=== PATIENT | female | born 1995 | race Caucasian/White ===

== ENCOUNTER → 2020-03-24 | Outpatient (CLI) | payer SELFPAY ==
[~2020-03-24] MED LIST: CYCL10 PO; IBUP600 PO
== END ==
LOC: LAB SHORT 12:23 → LAB 12:23
PROVIDERS: Registered Nurse Community Health
DX: Z12.4 Encounter for screening for malignant neoplasm of cervix (principal)
CPT/HCPCS: G0123

== ENCOUNTER → 2022-03-20 | Outpatient (CLI) | payer SELFPAY | END | disposition home or self-care (01) | LOC: LAB 17:00 → LAB SHORT 17:00 | DX: Z01.84 Encounter for antibody response examination (principal) | CPT/HCPCS: 86787 ==

== ENCOUNTER → 2024-03-30 | Outpatient (CLI) | payer OTHER | LOC: LAB SHORT 13:01 | DX: O09.893 Supervision of other high risk pregnancies, third trimester (principal); Z3A.00 Weeks of gestation of pregnancy not specified | CPT/HCPCS: 87081; 87150 ==

== ENCOUNTER 2024-04-20 05:57 | Inpatient (IN) | payer OTHER ==
[~2024-04-20] VITALS: Ht 157.5 cm; Wt 86.3 kg
[2024-04-20] VITALS (21 sets, daily range): BP systolic 100–131; BP diastolic 56–82
[~2024-04-20 05:57] MED LIST changes: +CeFAZolin Sodium 2,000 MG in NS 100 ML IV SCH; +Citric Acid/Sodium Citrate 30 ML BTL PO PRN; +Lactated Ringer's 1,000 ML IV SCH; +Metoclopramide HCl 5MG / ML 2ML Vial IV PRN
[2024-04-20] MEDS ORDERED: PRENATAL TABLE1 EAC2 PO (06:36)
[2024-04-20 06:58] LABS: BASOPHILS ABSOLUTE AUTO 0.02 K/mm3 (0.00-0.23); BASOPHILS PERCENT AUTO 0 % (0-2); EOSINOPHILS ABSOLUTE AUTO 0.07 K/mm3 (0.00-0.68); EOSINOPHILS PERCENT AUTO 1 % (0-6); Hematocrit 35.9 % (33.0-51.0); Hemoglobin 12.4 g/dL (11.5-16.0); IMMATURE GRAN PERCENT AUTO 1 % (0-1); LYMPHOCYTES ABSOLUTE AUTO 1.97 K/mm3 (0.84-5.20); LYMPHOCYTES PERCENT AUTO 22 % (21-46); MONOCYTES ABSOLUTE AUTO 0.81 K/mm3 (0.16-1.47); MONOCYTES PERCENT AUTO 9 % (4-13); Mean Corpuscular HGB 32.9 pg (26.0-34.0); Mean Corpuscular HGB Conc 34.5 g/dL (31.5-36.5); Mean Corpuscular Volume 95 fL (80-100); Mean Platelet Volume 10.2 fL (9.1-12.4); NEUTROPHILS ABSOLUTE AUTO 5.83 K/mm3 (1.96-9.15); NEUTROPHILS PERCENT AUTO 66 % (41-73); Platelet Count 266 K/mm3 (150-400); RDW Standard Deviation 49.3 fL (35.1-46.3); Red Blood Cell Count 3.77 M/mm3 (3.80-5.20)
[2024-04-20] MEDS ORDERED: FentaNYL Citrate 50 MCG/ML 2 ML Injection ONE (07:24)
[2024-04-20] MEDS ORDERED: Dexamethasone Sod Phos 10 MG/ML 1ML VIAL ONE (07:28)
[2024-04-20] MEDS ORDERED: Ondansetron HCl 2 MG / ML 2ML Vial ONE (08:07)
[2024-04-20] MEDS ORDERED: Oxytocin 10 Unit / ML Vial ONE (08:07)
--- NOTE | 2024-04-20 08:11 | NUR ---
04/20/24 0811 Beatriz Jack S C/D DELIVERY OF BREECH GIRL AT 0802. AP 04/09. CORD BLOOD COLLECTED AND SENT WITH BLANCA RHODES. PLACENTA COLLECTED AND GIVEN TO DAD TO TAKE HOME PER PT REQUEST.
[2024-04-20] MEDS ORDERED: Ketorolac Tromethamine 30mg Vial ONE (08:19)
[2024-04-20] MEDS ORDERED: Phenylephrine HCl 100 MCG/ML-NS 10MLSYR (1MG/10ML) ONE (08:21)
[2024-04-20] MEDS ORDERED: HYDROmorphone HCl/Pf 1MG SYR IV PRN (08:55)
[2024-04-20] MEDS ORDERED: FentaNYL Citrate 50 MCG/ML 2 ML Injection IV PRN ×3 (08:55)
[2024-04-20] MEDS ORDERED: Metoclopramide HCl 5MG / ML 2ML Vial IV PRN (08:55)
[2024-04-20] MEDS ORDERED: OxyCODONE HCL 5 MG TAB PO PRN ×2 (09:00)
[2024-04-20] MEDS ORDERED: OXYTOCIN/RINGER'S LACTATE 500 ML IV SCH (09:00)
[2024-04-20] MEDS ORDERED: DiphenhydrAMINE HCL 25 MG Cap PO PRN (09:00)
[2024-04-20] MEDS ORDERED: Lanolin Cream TOP PRN (09:00)
[2024-04-20] MEDS ORDERED: Misoprostol 200 MCG Tab PR PRN (09:00)
[2024-04-20] MEDS ORDERED: Acetaminophen 500 MG Tab PO PRN (09:00)
[2024-04-20] MEDS ORDERED: Ondansetron HCl 2 MG / ML 2ML Vial IV PRN (09:00)
[2024-04-20] MEDS ORDERED: Simethicone 80 MG Chew PO PRN (09:05)
[2024-04-20] MEDS ORDERED: Carboprost Tromethamine 250 MCG/ML 1ML Amp IM PRN (09:05)
[2024-04-20] MEDS ORDERED: Methylergonovine Maleate 0.2MG / ML 1ML Amp IM PRN (09:10)
[2024-04-20] MEDS ORDERED: Metoclopramide HCl 10 MG Tab PO PRN (09:10)
[2024-04-20] MEDS ORDERED: Magnesium Hydroxide Conc 10 ML UDC PO PRN (09:10)
[2024-04-20] MEDS ORDERED: Ketorolac Tromethamine 30mg Vial IV SCH ×2 (10:00→14:30)
[2024-04-20] MEDS ORDERED: Ibuprofen 400 MG Tab PO SCH (16:00)
[2024-04-20] MEDS ORDERED: Docusate Sodium 100 MG Cap PO SCH (21:00)
[2024-04-21 03:22] VITALS: BP 118/63
[2024-04-21 05:45] LABS: BASOPHILS ABSOLUTE AUTO 0.02 K/mm3 (0.00-0.23); BASOPHILS PERCENT AUTO 0 % (0-2); EOSINOPHILS ABSOLUTE AUTO 0.04 K/mm3 (0.00-0.68); EOSINOPHILS PERCENT AUTO 0 % (0-6); Hematocrit 32.5 % (33.0-51.0); Hemoglobin 11.4 g/dL (11.5-16.0); IMMATURE GRAN ABSOLUTE AUTO 0.14 K/mm3 (0.00-0.10); IMMATURE GRAN PERCENT AUTO 1 % (0-1); LYMPHOCYTES ABSOLUTE AUTO 2.86 K/mm3 (0.84-5.20); LYMPHOCYTES PERCENT AUTO 21 % (21-46); MONOCYTES ABSOLUTE AUTO 1.16 K/mm3 (0.16-1.47); MONOCYTES PERCENT AUTO 8 % (4-13); Mean Corpuscular HGB 33.8 pg (26.0-34.0); Mean Corpuscular HGB Conc 35.1 g/dL (31.5-36.5); Mean Corpuscular Volume 96 fL (80-100); Mean Platelet Volume 10.1 fL (9.1-12.4); NEUTROPHILS ABSOLUTE AUTO 9.68 K/mm3 (1.96-9.15); NEUTROPHILS PERCENT AUTO 70 % (41-73); Platelet Count 243 K/mm3 (150-400); RDW Coefficient Variation 14.1 % (11.7-14.2); RDW Standard Deviation 49.5 fL (35.1-46.3); Red Blood Cell Count 3.37 M/mm3 (3.80-5.20)
[2024-04-21 07:50] VITALS: BP 103/65
[2024-04-21] MEDS ORDERED: Prenatal Vit/FE Fumarate/FA 1 Tab PO SCH (09:00)
[2024-04-21 12:55] VITALS: BP 119/67
[2024-04-21 15:43] VITALS: BP 115/69
[2024-04-21 19:57] VITALS: BP 117/66
[2024-04-21 23:43] VITALS: BP 112/62
[2024-04-22 03:45] VITALS: BP 115/64
[2024-04-22 07:52] VITALS: BP 117/66
[2024-04-22 11:00] VITALS: BP 118/75
== END 2024-04-22 12:15 | disposition home or self-care (01) | DRG 788 ==
LOC: BC 06:00
PROVIDERS: ADMIT Obstetrics & Gynecology
PROC: 10D00Z1 Extraction of Products of Conception, Low, Open Approach (ICD-10-PCS; principal; 2024-04-20 07:30)
DX: O32.1XX0 Maternal care for breech presentation, not applicable or unspecified (principal); O24.424 Gestational diabetes mellitus in childbirth, insulin controlled; Z67.40 Type O blood, Rh positive; Z37.0 Single live birth; Z79.4 Long term (current) use of insulin; Z3A.39 39 weeks gestation of pregnancy; Z79.899 Other long term (current) drug therapy
CPT/HCPCS: 36415; 82947; 85025; 86850; 86900; 86901; A9270; J0690; J1100; J1885; J2371; J2405; J2590; J2765; J3010; J7120